=== PATIENT | female | born 1945 | race Caucasian/White ===

== ENCOUNTER → 2016-06-26 | Outpatient (CLI) | payer MEDICARE, BC | LOC: GMA 13:59 | PROVIDERS: ATTEND Nurse Practitioner Family | DX: N30.00 Acute cystitis without hematuria (principal) ==

== ENCOUNTER → 2016-09-03 | Outpatient (CLI) | payer MEDICARE, BC | END | disposition home or self-care (01) | LOC: GMA 10:48 | PROVIDERS: ATTEND Nurse Practitioner Acute Care | DX: R53.83 Other fatigue (principal) ==

== ENCOUNTER → 2016-11-07 | Outpatient (CLI) | payer MEDICARE, BC | END | disposition home or self-care (01) | LOC: LAB.NP 18:51 | PROVIDERS: ATTEND Nurse Practitioner Family | DX: R10.84 Generalized abdominal pain (principal) ==

== ENCOUNTER → 2017-06-24 | Outpatient (CLI) | payer MEDICARE, BC | LOC: GMATM 16:29 | PROVIDERS: ATTEND Nurse Practitioner Family | DX: N39.0 Urinary tract infection, site not specified (principal); M54.5 Low back pain ==

== ENCOUNTER → 2017-06-26 | Outpatient (CLI) | payer MEDICARE, BC | LOC: GMALS 11:26 | PROVIDERS: ATTEND Nurse Practitioner Acute Care | DX: R53.83 Other fatigue (principal) ==

== ENCOUNTER → 2017-07-06 | Outpatient (CLI) | payer MEDICARE, BC | LOC: GMALS 19:24 | PROVIDERS: ATTEND Nurse Practitioner Acute Care | DX: D51.3 Other dietary vitamin B12 deficiency anemia (principal) ==

== ENCOUNTER → 2017-12-14 | Outpatient (CLI) | payer MEDICARE, BC | LOC: GMALS 17:30 | PROVIDERS: ATTEND Nurse Practitioner Acute Care | DX: D51.3 Other dietary vitamin B12 deficiency anemia (principal) ==

== ENCOUNTER → 2018-03-25 | Outpatient (CLI) | payer MEDICARE, BC ==
--- NOTE | 2018-03-25 15:14 | MRI ---
EXAM DESCRIPTION: Cervical Spine: MRI. CLINICAL HISTORY: 72 years Female HERNIATED CERVICAL DISC COMPARISON: MRI scan cervical spine without contrast 04/11/2015. TECHNIQUE: Multiplanar, high-field MRI, multiple sequences, non-contrast Cervical spine. FINDINGS: C3-4: Right uncinate spur. Right posterior 3 mm disc bulge abutting the cord. Facet joints are unremarkable. Mild right paracentral canal narrowing and right mild neural foraminal narrowing. Left neuroforamen patent. C4-5: Minimal disc desiccation with disc space preserved. Bilateral uncinate spurs. Mild narrowing of the left neural foramen. Bilateral facet joints are unremarkable. Canal is patent. C5-6: Disc desiccation and posterior broad-based bulge but not touching the cord. Bilateral uncinate spurs with bilateral mild neural foraminal narrowing. Mild central canal narrowing. C6-7: Minimal disc desiccation. Left side Modic type II endplate reactive changes. Minimal posterior disc bulge. Bilateral uncinate spurs. Moderate left neural foraminal narrowing. Mild right neural foraminal narrowing. Facet joints are unremarkable. Normal signal in the remaining discs with no bulging. Disc spaces preserved. Canal and neural foramina are patent. Facet joints are unremarkable. Spinal alignment negative.. No cord compression or cord edema. Atlantoaxial joint negative. Base of the cerebellar tonsils is above the foramen magnum. Paravertebral soft tissues show mild paraspinal muscle atrophy. Vertebral bodies are not compressed at any level. Normal marrow signal in the remaining vertebral bodies and the posterior elements. IMPRESSION: 1. Right posterior 3 mm disc bulge at C3-4 with mild right paracentral canal narrowing and right neural foraminal mild narrowing. Stable since the prior study. 2. Bilateral uncinate spurs at C4-5. Mild narrowing of the left neural foramen. Stable since the prior study. 3. C5-6 posterior broad-based disc bulge. Bilateral uncinate spurs and mild bilateral neural foraminal narrowing and canal narrowing is mild. Stable since the prior study. 4. Moderate spondylosis in the midline into the left of midline at C6-7. Moderate left neural foraminal narrowing. Stable since the prior study. 5. No significant canal or neural foraminal stenosis at any level. No significant disc abnormality.. Electronically signed by: Srini Patel MD 03/25/2018 3:13 PM [facility]
== END ==
LOC: MRI 11:00
PROVIDERS: ATTEND Family Medicine
DX: M50.20 Other cervical disc displacement, unspecified cervical region (principal)

== ENCOUNTER → 2018-04-20 | Outpatient (CLI) | payer MEDICARE, BC ==
--- NOTE | 2018-04-20 10:57 | MRI ---
EXAM DESCRIPTION: Lumbar Spine w/o Contrast CLINICAL HISTORY: LUMBAR RADICULOPATHY COMPARISON: None Available. TECHNIQUE: MRI of the lumbar spine is performed according to our usual protocol with axial and sagittal multi sequence imaging. FINDINGS: Sagittal T2 images reveal decreased signal intensity consistent with desiccation of the intervertebral discs, especially at levels L3-4 through L5-S1. Posterior annular bulges are relatively mild. High signal intensity vertebral body lesions at T11 and L2 are consistent with incidental hemangiomas. No prevertebral mass or aneurysm. Lower cord and conus appear normal. Tip of the conus is behind L1-L2. Sagittal T1 images reveal benign marrow signal characteristics. Normal T1 signal intensity and appearance of the lower cord and conus. Sagittal STIR images are negative for marrow edema within the vertebral bodies or posterior elements. No paraspinous fluid collection or cystic lesion. Axial T1 and T2-weighted images were obtained to evaluate the disc levels. T12-L1: Minimal posterior annular bulge without spinal stenosis or neural foraminal narrowing. Facets appear normal. Normal appearance of the lower cord and conus. L1-2: Mild posterior annular bulge with left lateral accentuation. No spinal stenosis or neural foraminal narrowing. Facets appear moderately hypertrophic. L2-3: Minimal posterior annular bulge without focal herniation. No spinal stenosis or neural foraminal narrowing. Moderate facet hypertrophic spurring. L3-4: Moderate diffuse posterior annular bulge without significant spinal stenosis. Neural foraminal narrowing is mild bilaterally. Moderate facet hypertrophic changes with mild narrowing of subarticular recesses. L4-5: Moderate diffuse posterior annular bulge mildly narrowing the spinal canal to 8 mm in AP dimension. Marked facet hypertrophic spurring and ligamentum flavum thickening narrows the mediolateral width of the canal to 4.5 mm. Sagittal images show moderate right and moderately severe left neural foraminal narrowing crowding the exiting L4 nerve roots. There is moderately severe bilateral subarticular recess narrowing crowding the descending L5 nerve roots. L5-S1: Mild diffuse posterior annular bulge without spinal stenosis. There is moderate bilateral neural foraminal narrowing crowding the exiting L5 nerve roots. Marked facet hypertrophic changes are seen without significant subarticular recess or lateral recess compromise. Sacrum appears intact. No retroperitoneal mass or aneurysm. IMPRESSION: Moderate spinal stenosis at L4-5 as described. Moderate to moderately severe neural foraminal narrowing bilaterally at L4-5 and L5-S1. Electronically signed by: Mehrdad Goodrich MD 04/20/2018 10:55 AM [facility] [employer]
== END ==
LOC: MRI 10:00
PROVIDERS: ATTEND Anesthesiology Pain Medicine
DX: M54.16 Radiculopathy, lumbar region (principal); M48.062 Spinal stenosis, lumbar region with neurogenic claudication

== ENCOUNTER → 2018-05-21 | Outpatient (CLI) | payer MEDICARE, BC | LOC: GMAJ 19:02 | PROVIDERS: ATTEND Family Medicine | DX: N39.0 Urinary tract infection, site not specified (principal) ==

== ENCOUNTER → 2018-08-11 | Outpatient (CLI) | payer MEDICARE, BC | LOC: GMALS 17:32 | PROVIDERS: ATTEND Nurse Practitioner Acute Care | DX: D51.3 Other dietary vitamin B12 deficiency anemia (principal) ==

== ENCOUNTER → 2018-10-13 | Outpatient (CLI) | payer MEDICARE, BC | LOC: LAB.O 17:38 | PROVIDERS: ATTEND Family Medicine | DX: R19.7 Diarrhea, unspecified (principal) ==

== ENCOUNTER → 2018-11-29 | Outpatient (CLI) | payer MEDICARE, BC ==
--- NOTE | 2018-11-29 14:07 | CT ---
EXAM DESCRIPTION: Abdomen t/Pelvis w/o Contrast CLINICAL HISTORY: 73 years, 73 years, Female, Female, LEFT LOWER QUADRANT PAIN COMPARISON: May 17, 2015 TECHNIQUE: CT of the abdomen and pelvis is performed according to our non contrast protocol This exam was performed according to our departmental dose-optimization program, which includes automated exposure control, adjustment of the mA and/or kV according to patient size and/or use of iterative reconstruction technique. FINDINGS: The lung bases are essentially clear without infiltrate or effusion. Borderline or mild hepatomegaly is present with surgical absence of the gallbladder and normal caliber ductal system. Pancreas and adrenal glands are small and normal. The unenhanced kidneys demonstrate no large cystic or solid mass or evidence of obstruction. Aortic calcification without aneurysm is present without retroperitoneal adenopathy. Bilateral retroperitoneal phleboliths or granulomatous calcifications on either side of the retroperitoneum is incidentally noted. Moderately extensive distal descending and sigmoid colonic diverticulosis is present. Adjacent to the iliac crest slightly larger diverticulum with minimal surrounding pericolic inflammation suggesting earliest changes of diverticulitis. No pelvic fluid collections or right lower quadrant abnormality is noted with the appendix not specifically identified but no inflammatory changes. No obstruction or ileus noted. Tiny amount of curvature and degenerative change of the spine convex to the left is present. Within the pelvis bladder is normally distended and the uterus appears surgically absent without adnexal mass. Common iliac or inguinal or pelvic sidewall adenopathy is not apparent. The lumbar spine is unremarkable. Anterior abdominal wall is unremarkable. No abdominal or pelvic ascites is seen. Vertebral and disc height is maintained. IMPRESSION: 1. Left colonic diverticulosis with one area of mild inflammation surrounding a larger left colonic diverticulum adjacent to the iliac crest. Mild diverticulitis without phlegmon or abscess suspected no drainable fluid collection seen. 2. Surgical absence of the gallbladder and borderline hepatomegaly 3. Moderately extensive aortic calcification and surgical absence of the uterus. Electronically signed by: Laron Cary MD 11/29/2018 2:05 PM CDT
== END ==
LOC: CT 11:39
PROVIDERS: ATTEND Nurse Practitioner Acute Care
DX: K57.30 Diverticulosis of large intestine without perforation or abscess without bleeding (principal); K57.92 Diverticulitis of intestine, part unspecified, without perforation or abscess without bleeding; I70.0 Atherosclerosis of aorta; Z90.49 Acquired absence of other specified parts of digestive tract; Z90.710 Acquired absence of both cervix and uterus

== ENCOUNTER → 2018-12-04 | Outpatient (CLI) | payer MEDICARE, BC | LOC: LAB.O 09:55 | PROVIDERS: ATTEND Nurse Practitioner Family | DX: K57.92 Diverticulitis of intestine, part unspecified, without perforation or abscess without bleeding (principal) ==

== ENCOUNTER → 2019-08-05 | Outpatient (CLI) | payer MEDICARE, BC | LOC: GMALS 12:17 | PROVIDERS: ATTEND Nurse Practitioner Acute Care | DX: D51.3 Other dietary vitamin B12 deficiency anemia (principal) ==

== ENCOUNTER → 2019-10-14 | Outpatient (CLI) | payer MEDICARE, BC | LOC: GMAJ 11:48 | PROVIDERS: ATTEND Family Medicine | DX: R39.15 Urgency of urination (principal); E78.2 Mixed hyperlipidemia; I10 Essential (primary) hypertension ==

== ENCOUNTER → 2020-02-06 | Outpatient (CLI) | payer MEDICARE, BC ==
--- NOTE | 2020-02-06 10:09 | RAD ---
EXAM DESCRIPTION: Shoulder,Right 2 or More Views CLINICAL HISTORY: pain in right shoulder COMPARISON: None Available. TECHNIQUE: Four views of the right shoulder. FINDINGS: Four views right shoulder demonstrate moderate AC joint arthropathy. There is minimal degenerative change involving the glenohumeral articulation. No fracture or dislocation or destructive process noted. The chest wall and right lung field appear clear. IMPRESSION: 1. Mild degenerative changes right shoulder. Electronically signed by: Laron Cary MD 02/06/2020 10:08 AM [facility]
== END ==
LOC: RAD 08:42
PROVIDERS: ATTEND Orthopaedic Surgery
DX: M19.011 Primary osteoarthritis, right shoulder (principal)

== ENCOUNTER → 2020-02-07 | Outpatient (CLI) | payer MEDICARE, BC | LOC: GMALS 17:14 | PROVIDERS: ATTEND Nurse Practitioner Acute Care | DX: R30.0 Dysuria (principal) ==